=== PATIENT | female | born 1990 | race Caucasian/White ===

== ENCOUNTER 2016-10-12 09:20 | Emergency (ER) | payer OTHER | END 2016-10-12 10:20 | disposition home or self-care (01) | LOC: ER1 09:20 | DX: S39.012A Strain of muscle, fascia and tendon of lower back, initial encounter (principal); Z79.899 Other long term (current) drug therapy; X50.1XXA Overexertion from prolonged static or awkward postures, initial encounter | CPT/HCPCS: 81001; 84703; 99283 ==

== ENCOUNTER → 2016-10-12 | Outpatient (CLI) | payer OTHER | LOC: RAD 13:14 | DX: M54.5 Low back pain (principal) | CPT/HCPCS: 72110 ==

== ENCOUNTER 2021-01-29 21:55 | Emergency (ER) | payer OTHER ==
[2021-01-30 02:27] LABS: HEMOGLOBIN 14.3 gm/dl (12.3-15.3); RED BLOOD COUNT 4.8 M/UL (4.00-5.10); WHITE BLOOD COUNT 10.9 K/UL (4.5-11.0)
[2021-01-30 02:58] LABS: BUN/CREATININE RATIO 10 (0-10)
== END 2021-01-30 04:05 | disposition home or self-care (01) ==
LOC: ER1 21:55
PROVIDERS: Physician Assistant
DX: R07.2 Precordial pain (principal); Z90.49 Acquired absence of other specified parts of digestive tract; Z79.899 Other long term (current) drug therapy
CPT/HCPCS: 71045; 80053; 82550; 82553; 83874; 84484; 85025; 85379; 93005; 99285